=== PATIENT | female | born 1985 | race Caucasian/White ===

== ENCOUNTER 2016-08-25 21:20 | Emergency (ER) | payer OTHER ==
[~2016-08-25] VITALS: Ht 172.7 cm; Wt 45.4 kg
[~2016-08-25 21:20] MED LIST: ADDERALL XR30 MG PO; AMOXIL500 MG PO; BUSPIRONE HCL10 MG PO; CECLOR PULVULE500 MG PO; FIORICET 325 MG1 TAB PO; LEVOTHYROXIN0.025 M1 PO; PERCOCET 325 MG1 TA2 PO; PREDNISONE 10MG10 M1 PO; PREDNISONE 20MG20 MG PO
--- NOTE | 2016-08-25 21:52 | ED GI/GU/ABDOMINAL COMPLAINT ---
History of Present Illness General Chief Complaint: Nausea, Vomiting, Diarrhea Stated Complaint: NVD ABD PAIN Source: patient, family, old records Exam Limitations: no limitations Vital Signs & Intake/Output Vital Signs & Intake/Output Vital Signs Date Time Temp Pulse Resp B/P Pulse O2 O2 Flow FiO2 Ox Delivery Rate 08/25 2329 97 Room Air 08/259 98.1 112 20 110/79 98 Room Air Allergies Coded Allergies: aspirin (UNKNOWN 08/25/16) Uncoded Allergies: ANTIHISTAMINES (FACIAL TWITCHES 08/23/13) Reconcile Medications Amoxicillin (Amoxil) 500 MG CAP 1 TAB PO BID DENTAL INFECTION Amphetamine Salt Combination (Adderall XR) 30 MG CER 1 CAP PO DAILY MENTAL HEALTH (Reported) Buspirone Hydrochloride (Buspirone HCl) 10 MG TAB 1 TAB PO DAILY MENTAL HEALTH (Reported) Levothyroxine Sodium 0.025 MG TAB 0.025 MG PO DAILY AC THYROID (Reported) OXYCODONE HCL/ACETAMINOPHEN (Percocet 5-325 MG Tablet) 325 MG/5 MG TAB 1-2 TAB PO Q4-6 PRN PRN PAIN Prednisone 20 MG TABLET 2 TAB PO DAILY TRIGEMINAL NEURALGIA Triage Note: TRIAGE: PT TO ER WITH S/O C/C ABD PAIN AND N/V/D. ALSO COMPLAINS OF BACK PAIN THAT STARTED THIS MORNING. PT ACTIVELY VOMITING AT TRIAGE. ALSO HAD GI BUG LAST WEEK. STATES DIDN'T HAVE THIS PAIN LAST TIME. Triage Nurses Notes Reviewed? yes ? N Is pt currently ? No HPI: Patient started with bilateral lower back pain this morning. She then developed diffuse abdominal cramping pain. Patient states that she feels like she is in labor. The pain is constant. The pain continues to be in her lower back as well. Positive nausea vomiting and diarrhea. The pain is 10 out 10. No aggravating or mitigating factors. Patient denies dysuria. There is no vaginal discharge or vaginal bleeding. The patient states that she has an IUD in so does not get her period. Past History Travel History Traveled to [place] past 21 day No Medical History Any Pertinent Medical History? 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 No Review of Systems Review of Systems Constitutional: Reports: no symptoms. EENTM: Reports: no symptoms. Respiratory: Reports: no symptoms. Cardiovascular: Reports: no symptoms. GI: Reports: see HPI, abdominal pain, diarrhea, nausea, vomiting. Genitourinary: Reports: no symptoms. Musculoskeletal: Reports: see HPI, back pain. Skin: Reports: no symptoms. Neurological/Psychological: Reports: no symptoms. Hematologic/Endocrine: Reports: no symptoms. Immunologic/Allergic: Reports: no symptoms. All Other Systems: Reviewed and Negative Physical Exam Physical Exam General Appearance: well developed/nourished, alert, awake, severe distress Head: atraumatic Eyes: Bilateral: PERRL, EOMI. Ears, Nose, Throat, Mouth: hearing grossly normal Neck: normal inspection, supple Respiratory: normal breath sounds, chest non-tender, no respiratory distress, lungs clear Cardiovascular: regular rate/rhythm, normal peripheral pulses Gastrointestinal: normal bowel sounds, soft, guarding, tenderness (DIFFUSE) Back: normal inspection, normal range of motion, NO CVA TENDERNESS Extremities: normal range of motion Neurologic/Psych: no motor/sensory deficits, awake, alert, oriented x 3, normal mood/affect Skin: intact, normal color, warm/dry Core Measures ACS in differential dx? No Severe Sepsis Present: No Septic Shock Present: No Progress Differential Diagnosis: appendicitis, biliary colic, cholecystitis, diverticulitis, ectopic , gastritis, hepatitis, ischemic bowel, inflamm bowel dis, intrauterine , pancreatitis, peptic ulcer, PUD/GERD, perforated viscous, SBO, threatened AB, UTI/pyelo Plan of Care: Orders Procedure Date/time Status URINALYSIS 08/25 2149 Active LIPASE 08/25 2149 Complete HUMAN BETA HCG SCREEN 08/25 2149 Complete COMPREHENSIVE METABOLIC PANEL 08/25 2149 Complete CBC WITHOUT DIFFERENTIAL 08/25 2149 Complete AMYLASE 08/25 2149 Complete Laboratory Tests 08/25/16 2210: Anion Gap 15, Estimated GFR > 60, BUN/Creatinine Ratio 13.8, Glucose 120 H, Calcium 9.9, Total Bilirubin 0.8, AST 28, ALT 35, Alkaline Phosphatase 107, Total Protein 8.1, Albumin 4.9, Globulin 3.2, Albumin/Globulin Ratio 1.5, Amylase 55, Lipase 86, Total Beta HCG NEGATIVE, CBC w Diff MAN DIFF ORDERED, RBC 6.47 H, MCV 82.6, MCH 27.4, RDW 13.4, MPV 9.1, Gran % 90.3 H, Lymphocytes % 4.0 L, Monocytes % 4.2, Eosinophils % 1.4, Basophils % 0.1, Absolute Granulocytes 18.6 H, Absolute Lymphocytes 0.8 L, Absolute Monocytes 0.9 H, Absolute Eosinophils 0.3, Absolute Basophils 0, Platelet Estimate ADEQUATE, Normocytic RBCs VERIFIED, Normochromic RBCs VERIFIED, PUBS MCHC 33.2 Diagnostic Imaging: Viewed by Me: CT Scan. Discussed w/RAD: CT Scan. Radiology Impression: PATIENT: JOSE PATEL PRESENT AGE: 31 PATIENT ACCOUNT NO: [id number] : 85 LOCATION: [facility] ORDERING PHYSICIAN: CHRISTOPHER COLE MD SERVICE DATE: 08/25/16 EXAM TYPE: CAT - CT ABD & PELVIS W IV CONTRAST EXAMINATION: CT ABDOMEN AND PELVIS WITH CONTRAST CLINICAL INFORMATION: Right lower quadrant pain COMPARISON: None. TECHNIQUE: Multidetector volumetric imaging was performed of the abdomen and pelvis before and after the IV administration of 95 mL of Optiray 320 intravenous contrast. Sagittal and coronal reformatted images were obtained on the technologist's workstation. DLP: 289.19 mGy-cm. FINDINGS: LUNG BASES: The visualized lung bases are unremarkable. LIVER, GALLBLADDER, AND BILIARY TREE: The liver is normal in size, shape, and attenuation. No focal hepatic lesion or biliary ductal dilatation is present. The gallbladder is unremarkable with no evidence of radiopaque gallstones, gallbladder wall thickening, or obvious pericholecystic inflammatory changes. PANCREAS: Unremarkable. SPLEEN: Unremarkable. ADRENAL GLANDS: Unremarkable. KIDNEYS AND URETERS: The kidneys are normal in size, shape , and attenuation. No hydronephrosis, hydroureter, or calculi seen. No perinephric stranding. BLADDER: Mildly distended and grossly unremarkable. GASTROINTESTINAL TRACT: The small and large bowel are unremarkable. The appendix is unremarkable. ABDOMINAL WALL: No significant hernia is appreciated. LYMPH NODES: Normal. VASCULAR: Unremarkable. PELVIC VISCERA: There is a 2.8 cm cystic lesion in the right adnexa, likely ovarian. OSSEOUS STRUCTURES: Unremarkable. IMPRESSION: 1. Normal appendix. 2. Probable 2.8 cm right ovarian cyst. DICTATED BY: RANGEL MARTINO MD DATE/TIME DICTATED:08/25/162336 BAG ADJUSTER:SHANNAN DATE/TIME TRANSCRIBED:08/25/162336 CONFIDENTIAL, DO NOT COPY WITHOUT APPROPRIATE AUTHORIZATION. <Electronically signed in Other Vendor System> SIGNED BY: RANGEL MARTINO MD 08/25/16 7791 Initial ED EKG: none Comments: Pain is much improved after IV Toradol and nausea has resolved after IV Zofran. Patient updated on lab results as well as CAT scan findings. Patient feels comfortable going home. Departure Departure Disposition: HOME OR SELF CARE Condition: Stable Clinical Impression Primary Impression: Vomiting Secondary Impressions: Abdominal pain, unspecified site Qualifiers: Abdominal location: generalized Qualified Code: R10.84 - Generalized abdominal pain Diarrhea Qualifiers: Diarrhea type: unspecified type Qualified Code: R19.7 - Diarrhea, unspecified Right ovarian cyst Referrals: DELICIA BLANCO MD (PCP/Family) Additional Instructions: REUTRN IF SYMPTOMS WORSEN OR FOR ANY CONCERNS Departure Forms: Customer Survey General Discharge Information Prescriptions: Current Visit Scripts Ketorolac Tromethamine 1 TAB PO Q6P PRN PAIN #20 TAB NS. AMANDA RECEIVED IV TORADOL IN ED Ondansetron (Zofran Odt) 1 TAB SL TID PRN NAUSEA #10 TAB
[2016-08-25 22:23] LABS: ABSOLUTE BASOPHIL COUNT 0 /CUMM (0.0-0.2); ABSOLUTE EOSINOPHIL COUNT 0.3 /CUMM (0.0-0.7); ABSOLUTE GRANULOCYTE CT 18.6 /CUMM (1.4-6.5); ABSOLUTE LYMPH COUNT 0.8 /CUMM (1.2-3.4); ABSOLUTE MONOCYTE COUNT 0.9 /CUMM (0.10-0.60); BASOPHIL % 0.1 % (0.0-2.0); EOSINOPHIL % 1.4 % (0-5); HEMATOCRIT 53.4 % (37-47); MEAN CORPUSCULAR HGB 27.4 PG (27.0-31.0); MEAN CORPUSCULAR HGB CONC 33.2 G/DL (33.0-37.0); MEAN CORPUSCULAR VOLUME 82.6 FL (81.0-99.0); MEAN PLATELET VOLUME 9.1 FL (7.4-10.4); PLATELET COUNT 335 /CUMM (130-400); RBC DISTRIBUTION WIDTH 13.4 % (11.5-14.5); RED BLOOD CELL CT 6.47 /CUMM (4.20-5.40); WHITE BLOOD CELL COUNT 20.6 /CUMM (4.8-10.8)
[2016-08-25 22:25] LABS: GRANULOCYTE % 90.3 % (42.2-75.2)
--- NOTE | 2016-08-25 23:46 | CT SCAN REPORT ---
EXAMINATION: CT ABDOMEN AND PELVIS WITH CONTRAST CLINICAL INFORMATION: Right lower quadrant pain COMPARISON: None. TECHNIQUE: Multidetector volumetric imaging was performed of the abdomen and pelvis before and after the IV administration of 95 mL of Optiray 320 intravenous contrast. Sagittal and coronal reformatted images were obtained on the technologist's workstation. DLP: 289.19 mGy-cm. FINDINGS: LUNG BASES: The visualized lung bases are unremarkable. LIVER, GALLBLADDER, AND BILIARY TREE: The liver is normal in size, shape, and attenuation. No focal hepatic lesion or biliary ductal dilatation is present. The gallbladder is unremarkable with no evidence of radiopaque gallstones, gallbladder wall thickening, or obvious pericholecystic inflammatory changes. PANCREAS: Unremarkable. SPLEEN: Unremarkable. ADRENAL GLANDS: Unremarkable. KIDNEYS AND URETERS: The kidneys are normal in size, shape, and attenuation. No hydronephrosis, hydroureter, or calculi seen. No perinephric stranding. BLADDER: Mildly distended and grossly unremarkable. GASTROINTESTINAL TRACT: The small and large bowel are unremarkable. The appendix is unremarkable. ABDOMINAL WALL: No significant hernia is appreciated. LYMPH NODES: Normal. VASCULAR: Unremarkable. PELVIC VISCERA: There is a 2.8 cm cystic lesion in the right adnexa, likely ovarian. OSSEOUS STRUCTURES: Unremarkable. IMPRESSION: 1. Normal appendix. 2. Probable 2.8 cm right ovarian cyst.
[2016-08-25] MEDS ORDERED: ZOFRAN ODT4 M1 SL (23:55)
[2016-08-25] MEDS ORDERED: KETOROLAC TROME10 M1 PO (23:55)
[2016-08-26 00:06] VITALS: BP 126/82
== END 2016-08-26 00:09 ==
LOC: ERH 21:20
PROVIDERS: Emergency Medicine
DX: N83.201 Unspecified ovarian cyst, right side (principal); R11.10 Vomiting, unspecified; R19.7 Diarrhea, unspecified
CPT/HCPCS: 74177; 96361; 96374; 96375; J1885; J2405

== ENCOUNTER 2017-09-05 14:45 | Emergency (ER) | payer OTHER ==
[~2017-09-05] VITALS: Ht 172.7 cm; Wt 79.4 kg
[~2017-09-05 14:45] MED LIST changes: +ADDERALL 10 MG10 MG PO; +ADDERALL XR 3030 MG PO; -ADDERALL XR30 MG PO; +ALPRAZOLAM0.5 M4 PO; +BENZACLIN GEL 550 GM TOP; +CYANOCOBAL1000 MCG/2 IM; +DEXTROAMP-AMPHE10 MG PO; +DOXYCYCLINE HY100 M2 PO; +KETOROLAC TROME10 M1 PO; +MIRENA1 EACH; +NORCO 5-325 TA1 EACH PO; +PERCOCET 5-3251 EACH PO; +PROAIR HFA8.5 GM INH; +RESTASIS1 EACH OU; +TRETINOIN20 G1 TOP; +TRIAMCINOLONE A15 G1 TOP; +VITAMIN D250000 UNIT PO; +ZOFRAN ODT4 M1 SL
[2017-09-05 15:49] LABS: ABSOLUTE BASOPHIL COUNT 0.1 /CUMM (0.0-0.2); ABSOLUTE EOSINOPHIL COUNT 0.3 /CUMM (0.0-0.7); ABSOLUTE GRANULOCYTE CT 6.9 /CUMM (1.4-6.5); ABSOLUTE LYMPH COUNT 2.7 /CUMM (1.2-3.4); ABSOLUTE MONOCYTE COUNT 0.9 /CUMM (0.10-0.60); BASOPHIL % 0.5 % (0.0-2.0); EOSINOPHIL % 3.1 % (0-5); GRANULOCYTE % 63.2 % (42.2-75.2); HEMATOCRIT 46.4 % (37-47); MEAN CORPUSCULAR HGB 28.6 PG (27.0-31.0); MEAN CORPUSCULAR HGB CONC 34.4 G/DL (33.0-37.0); MEAN CORPUSCULAR VOLUME 83.1 FL (81.0-99.0); MEAN PLATELET VOLUME 8.3 FL (7.4-10.4); PLATELET COUNT 380 /CUMM (130-400); RBC DISTRIBUTION WIDTH 12.8 % (11.5-14.5); RED BLOOD CELL CT 5.59 /CUMM (4.20-5.40); WHITE BLOOD CELL COUNT 10.9 /CUMM (4.8-10.8)
--- NOTE | 2017-09-05 17:33 | ED GI/GU/ABDOMINAL COMPLAINT ---
History of Present Illness General Chief Complaint: Abdominal Pain/Flank Pain Stated Complaint: +N +V +D, SEVERE ABD PAIN Source: patient, family Exam Limitations: no limitations Vital Signs & Intake/Output Vital Signs & Intake/Output Vital Signs Date Time Temp Pulse Resp B/P B/P Pulse O2 O2 Flow FiO2 Mean Ox Delivery Rate 09/05 1940 97.4 92 18 140/79 98 09/05 1830 Room Air 09/05 1535 98.2 120 18 154/92 98 Room Air Room Air ED Intake and Output 09/06 0000 09/05 1200 Intake Total Output Total Balance Patient 175 lb Weight Weight Reported by Patient Measurement Method Allergies Coded Allergies: aspirin (UNKNOWN PER PT 05/21/17) Uncoded Allergies: ANTIHISTAMINES (FACIAL TWITCHES 08/23/13) Reconcile Medications Albuterol Sulfate (Proair Hfa) 90 MCG HFA.AER.AD 2 PUF INH AD PRN ASTHMA ( Reported) Alprazolam 0.5 MG TABLET 1 TAB PO TIDPRN PRN ANXIETY (Reported) Clindamycin Phos/Benzoyl Perox (Benzaclin Gel 50G Pump) 1 %-5 % GEL.W.PUMP 1 RAUL TOP QPM ACNE (Reported) Cyanocobalamin (Vitamin B-12) (Cyanocobalamin Injection) 1,000 MCG/ML VIAL 1 ML IM AD SUPPLEMENT (Reported) Cyclosporine (Restasis) 0.05 % DROPERETTE 1 GTT OU AD PRN DRY EYES (Reported) Dextroamphetamine/Amphetamine (Adderall XR 30 MG Capsule) 30 MG CAP.ER.24H 1 CAP PO QAM ADD/ADHD (Reported) Dextroamphetamine/Amphetamine (Dextroamp-Amphetamin 10 MG Tab) 10 MG TABLET 2 TAB PO NOON PRN ADD/ADHD (Reported) Dextroamphetamine/Amphetamine (Adderall 10 MG Tablet) 10 MG TABLET 1 TAB PO QPM PRN ADD/ADHD (Reported) Dicyclomine Hydrochloride (Bentyl) 10 MG CAPSULE 1 CAP PO TID PRN abdominal spasms Doxycycline Hyclate 100 MG CAPSULE 1 CAP PO DAILY ACNE (Reported) Ergocalciferol (Vitamin D2) (Vitamin D2) 50,000 UNIT CAPSULE 1 CAP PO QSUN SUPPLEMENT (Reported) Levonorgestrel (Mirena) 20 MCG/24 HOUR (5 YEARS) IUD CONTROL (Reported) Ondansetron (Zofran Odt) 4 MG TAB.RAPDIS 1 TAB SL TID PRN nausea Oxycodone HCl/Acetaminophen (Percocet 5-325 MG Tablet) 5 MG-325 MG TABLET 1 TAB PO BID PRN pain Tretinoin 0.05 % CREAM..G. 1 RAUL TOP QAM ACNE (Reported) apply to affected area(s) Triamcinolone Acetonide 0.1 % CREAM..G. 1 RAUL TOP BID SKIN (Reported) Triage Note: TRIAGE: 32 Y/O FEMALE PRESENTS C/O "SEVERE STABBING ABDOMINAL PAIN", +N/+V/+D. Triage Nurses Notes Reviewed? yes ? n Is pt currently ? No Onset: Gradual Duration: week(s): (1) Timing: no prior history Quality/Severity: cramping, sharpness Severity Numbers: 8 Location: generalized abdomen Radiation: no radiation Activities at Onset: none Prior Abdominal Problems: none No Modifying Factors: none Associated Symptoms: nausea/vomiting HPI: Patient is a 32-year-old female presenting to the emergency department with chief complaint of nausea vomiting and diarrhea with tingling in the past one week. Patient reports about 5 episodes of loose stool daily, nonbloody. Patient also reports 2 episodes of nonbloody nonbilious emesis. Otherwise feeling fine. Denies nausea. Just reports generalized abdominal pain. Symptoms worse with eating. Doesn't matter what she eats. Denies recent travel or recent antibiotic use. Denies eating a restaurant that she typically does not use. No analysis sick with similar symptoms. She ate did get her flu shot this year. (Rosario Foy) Past History Travel History Traveled to [place] past 21 day No Medical History Any Pertinent Medical History? 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 No (Rosario Foy) Review of Systems Review of Systems Constitutional: Reports: no symptoms. Comments Review of systems: See HPI, All other systems negative. Constitutional, no chills fever or weight loss HEENT: No visual changes no sore throat no congestion Cardiovascular: No chest pain ,palpitation , orthopnea or ankle swelling Skin, no jaundice no rashes Respiratory: No dyspnea cough sputum or hemoptysis GI: Positive nausea, vomiting, diarrhea : No dysuria No hematuria Muscle skeletal: no back pain, no neck pain, Neurologic: No numbness no confusion, no headache Psych: No stress anxiety or depression,. Heme/endocrine: No bruising no bleeding no polyuria or polydipsia Immunology: No splenectomy or history of AIDS (Rosario Foy) Physical Exam Physical Exam General Appearance: well developed/nourished, no apparent distress, alert, awake , comfortable Gastrointestinal: soft, tenderness Comments: Well-developed well-nourished person in no acute distress HEENT: Pupils equally round and reactive to light and accommodation. Nose is atraumatic. External auditory canal and Tympanic membranes clear. Pharynx normal. No swelling or edema. Moist oromucosa. Neck: Supple, no lymphadenopathy, normal range of motion without pain or tenderness Back: Nontender, no CVA tenderness. Cardiovascular: Regular rate and rhythms no murmurs rubs or gallops, normal JVP Respiratory: Chest nontender. No respiratory distress.breath sounds clear to auscultation bilaterally Abdomen: Soft, nontender nondistended, no appreciable organomegaly. Normal bowel sounds. No ascites diffusely tender to palpation, no rebound or guarding Extremity: No edema Neuro: Alert oriented x3 Skin: No appreciable rash on exposed skin, skin is warm and dry. Psych: Mood and affect is normal, memory and judgment is normal. Core Measures ACS in differential dx? No Sepsis Present: No Sepsis Focused Exam Completed? No (Rosario Foy) Progress Differential Diagnosis: appendicitis, gastritis, pancreatitis, PUD/GERD, biloary coli, cholecystitis Plan of Care: Orders Procedure Date/time Status URINALYSIS 09/05 1512 Complete LIPASE 09/05 1512 Complete LACTIC ACID 09/05 1512 Complete HUMAN BETA HCG SCREEN 09/05 1512 Complete COMPREHENSIVE METABOLIC PANEL 09/05 1512 Complete CBC WITHOUT DIFFERENTIAL 09/05 1512 Complete AMYLASE 09/05 1512 Complete Laboratory Tests 09/05/17 1812: Lactic Acid Cancelled 09/05/17 1800: Urine Color YEL, Urine Clarity CLEAR, Urine pH 7.0, Ur Specific [place] 1.020, Urine Protein NEG, Urine Ketones NEG, Urine Nitrite NEG, Urine Bilirubin NEG, Urine Urobilinogen 0.2, Ur Leukocyte Esterase TRACE H, Ur Microscopic SEDIMENT EXAMINED, Urine RBC RARE, Urine WBC 1-3 H, Ur Epithelial Cells MOD H, Urine Bacteria MANY H, Urine Hemoglobin NEG, Urine Glucose NEG 09/05/17 1541: Anion Gap 16, Estimated GFR > 60, BUN/Creatinine Ratio 20.0, Glucose 121 H, Lactic Acid 1.5, Calcium 9.6, Total Bilirubin 0.4, AST 33, ALT 48, Alkaline Phosphatase 107, Total Protein 7.4, Albumin 4.4, Globulin 3.0, Albumin/Globulin Ratio 1.5, Amylase 62, Lipase 103, Total Beta HCG NEGATIVE, CBC w Diff NO MAN DIFF REQ, RBC 5.59 H, MCV 83.1, MCH 28.6, MCHC 34.4, RDW 12.8, MPV 8.3, Gran % 63.2, Lymphocytes % 25.1, Monocytes % 8.1, Eosinophils % 3.1, Basophils % 0.5, Absolute Granulocytes 6.9 H, Absolute Lymphocytes 2.7, Absolute Monocytes 0.9 H, Absolute Eosinophils 0.3, Absolute Basophils 0.1 Diagnostic Imaging: Viewed by Me: CT Scan. Discussed w/RAD: CT Scan. Radiology Impression: PATIENT: JOSE PATEL PRESENT AGE: 32 PATIENT ACCOUNT NO: [id number] : 85 LOCATION: [facility] ORDERING PHYSICIAN: Rosario HUMPHREYS SERVICE DATE: 09/05/17 EXAM TYPE: CAT - CT ABD & PELVIS W IV CONTRAST EXAMINATION: CT ABDOMEN AND PELVIS WITH CONTRAST CLINICAL INFORMATION: Vomiting x1 week COMPARISON: CT abdomen and pelvis 2016 TECHNIQUE: Multidetector volumetric imaging was performed of the abdomen and pelvis following IV administration of 94 mL of Optiray 320 intravenous contrast. Sagittal and coronal reformatted images were obtained on the technologist's workstation. DLP: 690 mGy-cm FINDINGS: LUNG BASES: The visualized lung bases are unremarkable. LIVER, GALLBLADDER, AND BILIARY TREE: The liver is diffusely low in attenuation. No enhancing lesion. No intrahepatic biliary dilatation. The gallbladder is unremarkable with no evidence of radiopaque gallstones, gallbladder wall thickening, or obvious pericholecystic inflammatory changes. PANCREAS: Unremarkable. SPLEEN: Unremarkable. ADRENAL GLANDS: Unremarkable. KIDNEYS AND URETERS: The kidneys are normal in size, shape, and attenuation. No hydronephrosis, hydroureter, or calculi seen. No perinephric stranding. BLADDER: Unremarkable. GASTROINTESTINAL TRACT: The small and large bowel are unremarkable. The appendix is unremarkable. ABDOMINAL WALL: No significant hernia is appreciated. LYMPH NODES: Normal. VASCULAR: Unremarkable. PELVIC VISCERA: Intrauterine device appears present within the uterus. Bilateral ovaries appear within normal limits. Trace free fluid within the pelvis is within normal physiologic range. OSSEOUS STRUCTURES: Unremarkable. IMPRESSION: Hepatic steatosis. No acute intra-abdominal or pelvic findings. DICTATED BY: Jolie Lebron MD DATE/TIME DICTATED:09/05/171917 DRIVE WORKER:SHANNAN DATE/TIME TRANSCRIBED:09/05/171917 CONFIDENTIAL, DO NOT COPY WITHOUT APPROPRIATE AUTHORIZATION. <Electronically signed in Other Vendor System> SIGNED BY: Jolie Lebron MD 09/05/171923 Initial ED EKG: none Comments: feeling improved after iv fluids, reglan, zofran. eating crackers without difficulty. (Rosario Foy) Departure Departure Time of Disposition: 1944 Disposition: HOME OR SELF CARE Condition: Stable Clinical Impression Primary Impression: Gastroenteritis Referrals: Jose M Lopez MD (PCP/Family) Edson Diego MD Additional Instructions: Follow-up with gastroenterology if symptoms persist. Take Reglan to help with any nausea. Take Bentyl to help with abdominal discomfort. Return for worsening symptoms or concerns. Departure Forms: Customer Survey General Discharge Information Prescriptions: Current Visit Scripts Dicyclomine Hydrochloride (Bentyl) 1 CAP PO TID PRN abdominal spasms #20 CAP Ondansetron (Zofran Odt) 1 TAB SL TID PRN nausea #10 TAB (Rosario Foy) PA/BALLAST CLEANING OPERATOR Co-Sign Statement Statement: ED Attending supervision documentation- [] I saw and evaluated the patient. I have also reviewed all the pertinent lab results and diagnostic results. I agree with the findings and the plan of care as documented in the PA's/BALLAST CLEANING OPERATOR's documentation. [x] I have reviewed the ED Record and agree with the PA's/BALLAST CLEANING OPERATOR's documentation. [] Additions or exceptions (if any) to the PAs/BALLAST CLEANING OPERATOR's note and plan are summarized below: [] (Abbi ROWLEY,[place])
--- NOTE | 2017-09-05 19:24 | CT SCAN REPORT ---
EXAMINATION: CT ABDOMEN AND PELVIS WITH CONTRAST CLINICAL INFORMATION: Vomiting x1 week COMPARISON: CT abdomen and pelvis 02/07/2017 TECHNIQUE: Multidetector volumetric imaging was performed of the abdomen and pelvis following IV administration of 94 mL of Optiray 320 intravenous contrast. Sagittal and coronal reformatted images were obtained on the technologist's workstation. DLP: 690 mGy-cm FINDINGS: LUNG BASES: The visualized lung bases are unremarkable. LIVER, GALLBLADDER, AND BILIARY TREE: The liver is diffusely low in attenuation. No enhancing lesion. No intrahepatic biliary dilatation. The gallbladder is unremarkable with no evidence of radiopaque gallstones, gallbladder wall thickening, or obvious pericholecystic inflammatory changes. PANCREAS: Unremarkable. SPLEEN: Unremarkable. ADRENAL GLANDS: Unremarkable. KIDNEYS AND URETERS: The kidneys are normal in size, shape, and attenuation. No hydronephrosis, hydroureter, or calculi seen. No perinephric stranding. BLADDER: Unremarkable. GASTROINTESTINAL TRACT: The small and large bowel are unremarkable. The appendix is unremarkable. ABDOMINAL WALL: No significant hernia is appreciated. LYMPH NODES: Normal. VASCULAR: Unremarkable. PELVIC VISCERA: Intrauterine device appears present within the uterus. Bilateral ovaries appear within normal limits. Trace free fluid within the pelvis is within normal physiologic range. OSSEOUS STRUCTURES: Unremarkable. IMPRESSION: Hepatic steatosis. No acute intra-abdominal or pelvic findings.
[2017-09-05 19:40] VITALS: BP 140/79
[2017-09-05] MEDS ORDERED: ZOFRAN ODT4 M1 SL (19:49)
[2017-09-05] MEDS ORDERED: BENTYL10 M1 PO (19:49)
== END 2017-09-05 20:09 ==
LOC: ERH 14:45
PROVIDERS: Physician Assistant
DX: K52.9 Noninfective gastroenteritis and colitis, unspecified (principal)
CPT/HCPCS: 74177; 81001; 96374; 96375; J0131; J2405; J2765

== ENCOUNTER 2018-04-07 11:14 | Emergency (ER) | payer OTHER ==
[~2018-04-07 11:14] MED LIST changes: +BENTYL10 M1 PO; +LEVOTHYROXINE50 MCG PO; +MOBIC15 M1 PO; +NICOTINE PATCH1 EAC3 TOP; +TOBRADEX EYE DRO5 ML OD
[2018-04-07 14:16] VITALS: BP 137/92
--- NOTE | 2018-04-07 14:19 | ED GENERAL ADULT ---
History of Present Illness General Chief Complaint: Headache Stated Complaint: MURDOCK Source: patient, family Exam Limitations: no limitations Vital Signs & Intake/Output Vital Signs & Intake/Output Vital Signs Date Time Temp Pulse Resp B/P B/P Pulse O2 O2 Flow FiO2 Mean Ox Delivery Rate 04/07 1417 98 Room Air 04/07 1416 98.8 73 18 137/92 99 04/07 1125 98.3 89 18 159/85 98 Room Air Allergies Coded Allergies: lidocaine (Severe, FACIAL SWELLING 03/24/18) aspirin (UNKNOWN PER PT 03/24/18) Uncoded Allergies: ANTIHISTAMINES (FACIAL TWITCHES 08/23/13) Reconcile Medications Albuterol Sulfate (Proair Hfa) 90 MCG HFA.AER.AD 2 PUF INH AD PRN ASTHMA ( Reported) Alprazolam 0.5 MG TABLET 1 TAB PO TIDPRN PRN ANXIETY (Reported) Carbamazepine 100 MG CPMP.12HR 100 MG PO BID PRN Trigeminal neuralgia Clindamycin Phos/Benzoyl Perox (Benzaclin Gel 50G Pump) 1 %-5 % GEL.W.PUMP 1 RAUL TOP QPM ACNE (Reported) Cyanocobalamin (Vitamin B-12) (Cyanocobalamin Injection) 1,000 MCG/ML VIAL 1 ML IM AD SUPPLEMENT (Reported) Dextroamphetamine/Amphetamine (Adderall XR 30 MG Capsule) 30 MG CAP.ER.24H 1 CAP PO QAM ADD/ADHD (Reported) Dextroamphetamine/Amphetamine (Dextroamp-Amphetamin 10 MG Tab) 10 MG TABLET ADD (Reported) Dextroamphetamine/Amphetamine (Adderall 10 MG Tablet) 10 MG TABLET 2 TAB PO 1400 ADD (Reported) Levonorgestrel (Mirena) 20 MCG/24 HOUR (5 YEARS) IUD CONTROL (Reported) Levothyroxine Sodium 50 MCG TABLET 1 TAB PO DAILY THYROID (Reported) Meloxicam (Mobic) 15 MG TABLET 1 TAB PO DAILY PRN pain Nicotine (Nicotine Patch) 21 MG/24 HOUR PATCH.TD24 1 PAT TOP DAILY SMOKING ( Reported) Ondansetron (Zofran Odt) 4 MG TAB.RAPDIS 1 TAB SL TID PRN nausea Tobradex (Tobradex Eye Drops) 0.3 %-0.1 % DROPS.SUSP 1 GTT OD 4 TIMES/DAY EYE (Reported) Tretinoin 0.05 % CREAM..G. 1 RAUL TOP QAM ACNE (Reported) apply to affected area(s) Triamcinolone Acetonide 0.1 % CREAM..G. 1 RAUL TOP BID SKIN (Reported) Triage Note: 33 YO FEMALE TO TRIAGE FOR EVAL OF R SIDED MURDOCK AND R EAR PAIN, REPORTS IT WOKE HER UP THIS AM AROUND 0230. STATES HX OF TRIGEMINAL NEURALGIA, STATES UNSURE IF THIS FEELS THE SAME. 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 Triage Nurses Notes Reviewed? yes : No Patient currently breastfeeds: No HPI: 33-year-old female past medical history significant for trigeminal neuralgia presents with right sided face pain since 2 AM this morning. Patient denies regular use of pain medication. States that she is allergic to antihistamines. Pain is located on the right side of her face radiating down to her chin into her nose denies rash. Has not tried anything at home for pain medication. Per the patient's mother she has not had an episode and few months. IUD for contraception. Past History Travel History Traveled to [place] past 21 day No Medical History Any Pertinent Medical History? see below for history Neurological: TRIGEMINAL NEURALGIA EENT: NONE Cardiovascular: NONE Respiratory: NONE Gastrointestinal: NONE Hepatic: NONE Renal: NONE Musculoskeletal: NONE Psychiatric: ADD GENERALIZED ANXIETY PTSD Endocrine: hypothyroidism Blood Disorders: NONE Cancer(s): NONE COMMERCIAL SINGER/Reproductive: OVARIAN CYST PCOS Surgical History Surgical History: , ORAL SURGERY Psychosocial History What is your primary language Uzbek Tobacco Use: Never used Family History Hx Contributory? Yes Review of Systems Review of Systems Constitutional: Denies: chills, diaphoresis, fever, malaise, weakness, unexplained weight loss. EENTM: Denies: blurred vision, double vision, visual changes, eye pain, eye drainage, eye tearing, ear pain, ear redness, nasal congestion, nasal pain, throat pain, throat swelling, mouth pain, tooth pain. Respiratory: Denies: cough, hemoptysis. Cardiovascular: Reports: no symptoms. GI: Reports: nausea, vomiting. Denies: abdominal pain, constipation, diarrhea. Genitourinary: Denies: discharge, dysuria, frequency, hematuria, hesitation, pain, urgency. Musculoskeletal: Denies: back pain, muscle stiffness, neck pain. Skin: Denies: rash. Neurological/Psychological: Reports: paresthesia. Denies: confusion, depressed, headache, tingling, tremors. Physical Exam Physical Exam General Appearance: well developed/nourished, no apparent distress Head: atraumatic, normal appearance, tenderness (right side of face) Eyes: Bilateral: normal appearance, PERRL, EOMI, pale conjunctivae. Ears, Nose, Throat: normal ENT inspection Neck: normal inspection Respiratory: normal breath sounds Cardiovascular: regular rate/rhythm Gastrointestinal: soft, non-tender Skin: normal color, warm/dry, Negative for skin changes. Skin appropriate for patient. Core Measures ACS in differential dx? No CVA/TIA Diagnosis: No Sepsis Present: No Sepsis Focused Exam Completed? No Progress Differential Diagnoses I considered the following diagnoses in my evaluation of the patient: Plan of Care: Positive response to treatment. Will discharge with Carbamazepine and the patient is to follow her primary care provider in 2 days. Initial ED EKG: none Departure Departure Disposition: HOME OR SELF CARE Condition: Stable Clinical Impression Primary Impression: Trigeminal neuralgia pain Referrals: Jose M Lopez MD (PCP/Family) Departure Forms: Customer Survey General Discharge Information Prescriptions: Current Visit Scripts Carbamazepine 100 MG PO BID PRN Trigeminal neuralgia #20 TAB Critical Care Note Critical Care Note Critical Care Time: non-applicable
[2018-04-07] MEDS ORDERED: CARBAMAZEPINE100 M1 PO (14:34)
== END 2018-04-07 15:08 ==
LOC: ERH 11:14
DX: G50.0 Trigeminal neuralgia (principal); R51 Headache; E03.9 Hypothyroidism, unspecified
CPT/HCPCS: 96372; J1885; J2765; J3101